=== PATIENT | male | born 1965 | race Caucasian/White ===

== ENCOUNTER 2020-06-26 07:58 | Outpatient (CLI) | payer OTHER, SELFPAY ==
--- OUTSIDE RECORDS SUMMARY | 2020-06-25 11:08 | XMS_ITS ---
:1965 Author Care Team Providers Name Role Phone ANNALISA THOMPSON MD General Surgeon [phone] IQRA MOSQUEDA MD Primary Care Provider [phone] LIANA PATINO [employer] Counter Sales Person [phone] Allergies Code Code System Name Reaction Severity Status Onset NKDA ? Medications Name Status Start Date Stop Date ? ? alfuzosin ER 10 mg Completed ? 02/09/2019 tablet,extended release 24 hr amoxicillin 500 mg capsule Completed ? 01/06 amoxicillin 500 mg tablet Completed ? 2017 Take 2 tablets every 12 hours by oral route for 14 days. Budeprion SR 150 mg tablet, sustained release Completed 10/18/2013 1 Tablet ER 12HR: bid - twice daily ciprofloxacin 500 mg tablet Completed ? 03/2018 clarithromycin 500 mg tablet Active ? Not available clobetasol 0.05 % topical ointment Active ? Not available APPLY TOPICALLY TWO TIMES A DAY TO HAND DERMATITIS doxazosin 2 mg tablet Completed 02/10/2012 02/10/2012 1 tablet(s): daily for benign prostatic hypertrophy doxepin 10 mg capsule Completed 07/23/2008 07/23/2008 1 at bedtime Capsule: increase as directed to 3 at bedtime Enema Disposable 19 gram-7 gram/118 mL Completed ? 06/22/2018 Insert 118 mL by rectal route as directed for 1 day. Use entire bottle rectally two hours prior to biopsy erythromycin 5 mg/gram (0.5 %) eye ointment Completed 08/1208/23/2011 1 Ointment: Every 8 hours Hibiclens 4 % topical liquid Completed 01/30/2013 1 Liquid: wash affected area 2-3 times a day hydrocodone 5 mg-acetaminophen 325 mg tablet Completed 07/04/2015 1-2 Tablet: Every 6 hours as needed hydrocodone 5 mg-acetaminophen 500 mg tablet Completed 08/201304/19/2013 1-2 Tablet: Every 6 hours as needed ibuprofen 600 mg tablet Completed 01/30/2013 02/10/20 13 1 Tablet: three times daily prn ibuprofen 800 mg tablet Completed 07/22/2010 07/23/19 11 1 Tablet: three times daily Keflex 500 mg capsule Completed 01/30/2013 02/09/2013 2 (two) Capsule: twice a day Lexapro 20 mg tablet Completed 08/16/2012 03/12/2014 1 Tablet: daily meloxicam 7.5 mg tablet Active ? Not avai lable Take 1 tablet twice a day by oral route. naproxen 500 mg tablet Completed ? 1 TAKE ONE TABLET BY MOUTH TWICE A DAY [place] 7.5 mg-325 mg tablet Completed 02/10/201202/09 1-2 Tablet: Every 6 hours as needed omeprazole 20 mg capsule,delayed Active ? Not available release omeprazole 40 mg capsule,delayed release Completed 006 12/16/2005 1 (one) Capsule DR: Daily pantoprazole 40 mg Active ? Not available tablet,delayed release Percocet 5 mg-325 mg tablet Completed 04/19/201308/2013 1-2 Tablet: Every 6 hours as needed phenazopyridine 200 mg tablet Completed ? prednisone 10 mg tablet Completed ? 06/07/19 21 sildenafil 100 mg tablet Active ? Not tati ilable TAKE ONE TABLET BY MOUTH EVERY DAY DIRECTED Sinemet 10 mg-100 mg tablet Completed 10/27/200610/13 1 (one) Tablet: bedtime sucralfate 1 gram tablet Completed ? 019 tamsulosin 0.4 mg capsule Completed ? 2018 Topamax 25 mg tablet Completed 08/15/2014 08/20/2014 1 (one) Tablet: q - at bedtime triamcinolone acetonide 0.1 % topical ointment Completed ? 06/06/2020 APPLY A THIN LAYER TO AFFECTED AREA S TWO TIMES A DAY triamcinolone acetonide 0.5 % Active ? No t available topical ointment Zantac Maximum Strength 150 mg tablet Completed 06/17/2014 06/17/2014 1 (one) Tablet: bid - twice daily Zithromax Z-Freddy 250 mg tablet Completed 07/04/2012 1 Tablet: 2 tabs day 1, 1 tab days 2-5 zolpidem 5 mg tablet Completed 08/03/2011 08/03/2011 1 (one) Tablet: At bedtime as needed Problems Name Status Onset Date Source ? Overweight Active ? History Non-organic Sleep Disorder Active ? Histo ry Adjustment Disorder with Depressed Mood Active ? History Insomnia Active ? History Extrapyramidal Disease Active ? History Restless Legs Active ? History Acute Pharyngitis Active ? History Disorder of Upper Respiratory System Active ? History Ventral Incisional Hernia of Anterior Abdominal Active ? History Wall without Obstruction and without Gangrene Diaphragmatic Hernia Active ? History Kidney Stone Active ? History Large Prostate Active ? History Cellulitis and Abscess of Upper Arm Active ? History Itching Active ? History Shoulder Joint Pain Active ? History Hip Pain Active ? History Neck Pain Active ? History Low Back Pain Active ? History Fibromyositis Active ? History Pain in Right Arm Active ? History Consciousness And/or Awareness Finding Active ? History Dizziness and Giddiness Active ? History Fever Active ? History Lack of Energy Active ? History Symptom of Skin and Integumentary Tissue Active ? History Headache Active ? History Polyuria Active ? History Tear of Medial Meniscus of Knee Active ? History Foreign Body on External Eye Active ? His tory Injury of Shoulder Region Active ? Histor y Adult Health Examination Active ? History Screening for Cardiovascular System Disease Active ? History Anemia Active ? History Procedure by Method Active ? History Finding of Esophagus Active ? History Pain in Eye Active ? History Pain in Left Knee Active ? History Procedures Date Name Performed by ? 12/26/2017 Colonoscopy Information not avai lable Notes: Diverticulosis 12/26/2017 Egd Information not avai lable Notes: GERD, Hiatal Hernia, Gastritis ; 07-18-2009; 10/28/2003 ? Hernia Repair Information not avai lable ? Adenoidectomy Information not avai lable ? Orthopedic Surgery Information not avai lable Notes: Rt Knee Arthroscopy w/ PMM & P atellofemoral Plica Ex 10/21/11 ? Tonsillectomy Information not avai lable 02/24/2018 XR, Wrist, 3 or More View [facility] Radiology (Internal) [address], [place] [id number] (Work Place) 05/10/2018 XR, Abdomen, 1 View [facility] Radiology (Internal) [address] [place] [address] (Work Place) 05/10/2018 US, Retroperitoneum [facility] ([facility]) [address] [place] [address] (Work Place) 05/10/2018 Unlisted Imaging Order [facility] (Internal) [address] [place] [address] (Work Place) 10/10/2018 XR, Knee, 4 or More View [facility] (Internal) [address] [place] [address] (Work Place) Results Lab Results Date Name Specimen Result Interpretation Description Value Range Status Address ? 06/24/2020 RBC Morphology, BLD ? Macro small ? Eileen l [facility] (Internal) : [address] ? ? BLD ? Poik occasional ? Final [place] [hpf] [facility] (Internal) : [address] 02/06/2019 Urinalysis, UR - UA-col pale yellow pale Fi nal [place] Dipstick, Reflex or yellow [facility] (Internal) : [address] t ? ? UR - UA-kristy clear clear Final [place] ear [facility] (Internal) : [address] t ? ? UR - UA-glu negative negative Final [facility] (Internal) : [address] t ? ? UR - UA-andrew negative negative Final [place] i [facility] (Internal) : [address] t ? ? UR - UA-ket negative negative Final [place] one [facility] (Internal) : [address] t ? ? UR - UA-spe 1.010 1.003-1.0 Final [place] c Grav 35 [facility] (Internal) : [address] t ? ? UR - UA-blo negative negative Final [place] od [facility] (Internal) : [address] ? ? UR - UA-pH 7.0 [pH] 4.6-8.0 Final [place] [pH] [facility] (Internal) : [address] ? ? UR - UA-pro negative negative Final [facility] (Internal) : [address] ? ? UR - UA-uro normal normal Final [facility] L ab (Internal) : [address] t ? ? UR - UA-nit negative negative Final [facility] L [facility] (Internal) : [address] ? ? UR - UA-celia negative negative Final [facility] L ab (Internal) : [address] 07/06/2018 Culture ([place] UR - Final microbiology ? Final [facility]), Urine results [facility] (Internal) : [address] 06/21/2018 Pathology Study TISS - Report results below ? Final [facility] (Internal) : [address] 01/11/2018 Urinalysis, UR - UA-col pale yellow pale Fi nal [place] Dipstick, Reflex or yellow [facility] (Internal) : [address] ? ? UR - UA-kristy clear clear Final [facility] L [facility] (Internal) : [address] ? ? UR - UA-spe 1.010 1.003-1.[address] L ab (Internal) : [address] ? ? UR - UA-pH 7.5 [pH] 4.6-8.0 Final [place] [pH] [facility] (Internal) : [address] ? ? UR - UA-celia negative negative Final [facility] L ab (Internal) : [address] ? ? UR - UA-nit negative negative Final [facility] L ab (Internal) : [address] t ? ? UR - UA-pro negative negative Final [facility] L ab (Internal) : [address] t ? ? UR - UA-glu negative negative Final [facility] L ab (Internal) : [address] ? ? UR - UA-ket negative negative Final [facility] L ab (Internal) : [address] t ? ? UR - UA-uro normal normal Final [facility] L ab (Internal) : [address] ? ? UR - UA-andrew negative negative Final [place] i [facility] L ab (Internal) : [address] ? ? UR - UA-blo negative negative Final [place] od [facility] L ab (Internal) : [address] 12/26/2017 Urease, TISS - Final microbiology ? Final [place] Qualitative, results Cou [facility] L ab (Internal) : [address] 12/26/2017 Pathology Study TISS - Report results below ? Final [facility] (Internal) : [address] 12/16/2017 Methicillin NASAL - Final microbiology ? [facility] Resistant results Countr y Staphylococcus Ho spital Lab Aureus, Culture, (Internal): Nasal [address] 11/28/2017 Lipid Panel, S - Chol 149 mg/dL 50-200 [place]en [facility] Serum mg/dL [facility] L ab (Internal) : [address] ? ? S - Trig 96 mg/dL 10-150 Final [place] mg/dL [facility] L ab (Internal) : [address] ? ? S - Hdl 46 mg/dL 40-60 Final [place] mg/dL [facility] L ab (Internal) : [address] ? ? S - Ldl 84 mg/dL 0-130 Final [place] mg/dL [facility] L ab (Internal) : [address] 11/28/2017 PSA, Serum or S - PSA 0.4 NG/mL 0.0-4.0 Fi [facility] Plasma Scrn NG/mL [facility] L ab (Internal) : [address] Past Encounters 06/06/2020 Pain of Right Shoulder Joint; Stiffness of Joint of Right Hand; Sleep Disorder; Fatigue; Screening for Malignant Neoplasm of Prostate; Primary Erectile Dysfunction; Hyperlipidemia Screening Iqra Mosqueda MD: [address] [place] [phone], Ph. 10/04/2019 Contact Dermatitis Iqra Mosqueda MD: [address] [place] [phone], Ph. 07/26/2019 Contact Dermatitis Iqra Mosqueda MD: [address] [place] [address], Ph. 03/21/2019 Sherie Linn PA-C: [address] [phone], Ph. 02/28/2019 Sherie Linn PA-C: [address] [phone], Ph. 02/21/2019 Sherie Linn PA-C: [address] [phone], Ph. 02/14/2019 Sherie Linn PA-C: [address] [phone], Ph. 02/09/2019 Adult Health Examination; Large Prostate Iqra Mosqueda MD: [address] [place] [address], Ph. Social History Tobacco Smoking Status Never Smoker Vaccine List Vaccine Type Tdap 10/15/2010?0.5 mL Plan of Care Reminders Provider Appointments None ? ? recorded. Lab None ? ? recorded. Referral None ? ? recorded. Procedures None ? ? recorded. Surgeries None ? ? recorded. Imaging None ? ? recorded. Vitals 06/06/2020 02:00PM Acute 20 Height Weight BMI Blood Pressure 167.64 cm 75.3 kg 26.8 kg/m2 130/80 mm[Hg] 10/04/2019 03:00PM Follow Up 20 Height Weight BMI Blood Pressure 167.64 cm 73.17 kg 26 kg/m2 130/70 mm[Hg] 07/26/2019 02:00PM Acute 20 Height Weight BMI Blood Pressure 167.64 cm 75.21 kg 26.8 kg/m2 138/88 mm[Hg] 03/21/2019 02:00PM Follow Up 15 Height Weight 167.64 cm 02/28/2019 01:45PM Injection 15 Height Weight 167.64 cm 02/21/2019 10:45AM Injection 15 Height Weight 167.64 cm 02/14/2019 03:45PM Injection 15 Height Weight 167.64 cm 02/09/2019 02:20PM Preop Clearance 40 Height Weight BMI Blood Pressure 167.64 cm 74.9 kg 26.7 kg/m2 146/80 mm[Hg] 11/16/2018 03:00PM Follow Up 15 Height Weight BMI Blood Pressure 167.64 cm 74.39 kg 26.5 kg/m2 138/68 mm[Hg] 06/08/2018 10:30AM Office 15 Height 167.64 cm 05/10/2018 10:30AM Office 15 Height 167.64 cm 02/24/2018 09:15AM Office 30 Height Weight BMI Blood Pressure 167.64 cm 77.25 kg 27.5 kg/m2 156/98 mm[Hg] 01/11/2018 12:40PM Follow Up 20 Height Weight BMI Blood Pressure 167.64 cm 76.71 kg 27.3 kg/m2 150/90 mm[Hg] 12/13/2017 09:15AM Office 15 Height 167.64 cm 11/28/2017 03:00PM Follow Up 20 Height Weight BMI Blood Pressure 167.64 cm 75.32 kg 26.8 kg/m2 132/80 mm[Hg] 01/11/2017 Weight Blood Pressure 76.48 kg 134/82 mm[Hg] 07/30/2016 Weight Blood Pressure 72.94 kg 112/74 mm[Hg] 07/04/2015 Blood Pressure 132/80 mm[Hg] 08/07/2014 Weight Blood Pressure 75.93 kg 120/78 mm[Hg] 07/30/2014 Weight Blood Pressure 73.62 kg 118/84 mm[Hg] 04/05/2014 Weight Blood Pressure 76.34 kg 120/70 mm[Hg] 03/12/2014 Weight Blood Pressure 77.38 kg 118/82 mm[Hg] 12/13/2013 Height Weight Blood Pressure 167.64 cm 72.57 kg 102/72 mm[Hg] 11/30/2013 Height Weight Blood Pressure 170.18 cm 76.84 kg 122/86 mm[Hg] 11/14/2013 Height Weight Blood Pressure 170.18 cm 76.84 kg 142/88 mm[Hg] 10/18/2013 Weight Blood Pressure 76.84 kg 118/64 mm[Hg] 04/19/2013 Weight Blood Pressure 77.56 kg 142/82 mm[Hg] 01/30/2013 Height Weight Blood Pressure 170.18 cm 76.09 kg 128/82 mm[Hg] 08/16/2012 Weight Blood Pressure 76.77 kg 118/70 mm[Hg] 07/26/2012 Blood Pressure 132/90 mm[Hg] 07/11/2012 Blood Pressure 136/88 mm[Hg] 07/04/2012 Weight Blood Pressure 74.12 kg 128/68 mm[Hg] 04/17/2012 Weight Blood Pressure 75.95 kg 120/70 mm[Hg] 02/10/2012 Weight Blood Pressure 74.39 kg 120/78 mm[Hg] 01/25/2012 Height Weight Blood Pressure 170.18 cm 72.57 kg 138/80 mm[Hg] 12/14/2011 Height Weight Blood Pressure 170.18 cm 72.57 kg 130/90 mm[Hg] 11/02/2011 Height Weight Blood Pressure 170.18 cm 72.57 kg 146/82 mm[Hg] 10/06/2011 Height Weight Blood Pressure 170.18 cm 72.57 kg 130/78 mm[Hg] 08/23/2011 Height Weight Blood Pressure 170.18 cm 73.68 kg 120/78 mm[Hg] 08/03/2011 Height Weight Blood Pressure 170.18 cm 73.03 kg 130/66 mm[Hg] 05/24/2011 Weight Blood Pressure 75.3 kg 120/78 mm[Hg] 02/17/2011 Weight Blood Pressure 73.71 kg 122/70 mm[Hg] 11/18/2010 Weight Blood Pressure 72.57 kg 128/80 mm[Hg] 10/15/2010 Weight Blood Pressure 71.21 kg 110/70 mm[Hg] 09/16/2010 Weight Blood Pressure 69.85 kg 122/80 mm[Hg] 08/19/2010 Height Weight Blood Pressure 170.18 cm 71.33 kg 138/70 mm[Hg] 07/22/2010 Height Weight Blood Pressure 399.8 cm 30.5 kg 138/72 mm[Hg] 10/07/2009 Weight Blood Pressure 69.85 kg 128/82 mm[Hg] 05/22/2009 Weight Blood Pressure 71.67 kg 122/84 mm[Hg] 01/20/2009 Weight Blood Pressure 71.67 kg 134/80 mm[Hg] 12/12/2008 Height Weight Blood Pressure 165.1 cm 70.31 kg 120/80 mm[Hg] 10/24/2008 Weight Blood Pressure 71.67 kg 130/80 mm[Hg] 07/03/2008 Blood Pressure 128/84 mm[Hg] 06/24/2008 Weight Blood Pressure 74.84 kg 142/80 mm[Hg] 06/10/2008 Weight Blood Pressure 76.2 kg 140/88 mm[Hg] 05/10/2008 Weight Blood Pressure 74.39 kg 130/84 mm[Hg] 05/03/2008 Weight Blood Pressure 73.94 kg 124/82 mm[Hg] 02/05/2008 Weight Blood Pressure 73.03 kg 140/90 mm[Hg] 01/24/2008 Weight Blood Pressure 71.21 kg (1) 126/90 mm[Hg] (2) 130/68 mm[Hg] 12/18/2007 Weight Blood Pressure 71.67 kg 140/94 mm[Hg] 08/01/2007 Weight Blood Pressure 74.84 kg 122/76 mm[Hg] 07/14/2007 Weight Blood Pressure 76.2 kg 112/80 mm[Hg] 06/27/2007 Weight Blood Pressure 73.94 kg 130/88 mm[Hg] 06/20/2007 Weight Blood Pressure 72.43 kg 134/90 mm[Hg] 12/23/2006 Weight Blood Pressure 72.57 kg 130/80 mm[Hg] 10/31/2006 Weight Blood Pressure 73.71 kg 120/80 mm[Hg] 06/03/2006 Weight Blood Pressure 72.18 kg 142/92 mm[Hg] 12/16/2005 Weight Blood Pressure 73.48 kg 116/84 mm[Hg] 11/03/2005 Weight Blood Pressure 73.48 kg 112/60 mm[Hg] 05/03/2005 Weight Blood Pressure 74.39 kg 118/84 mm[Hg] 04/02/2005 Weight Blood Pressure 73.48 kg (1) 138/96 mm[Hg] (2) 144/88 mm[Hg] (3) 138/94 mm[Hg] 08/14/2004 Weight Blood Pressure 71.21 kg 132/86 mm[Hg]
--- OUTSIDE RECORDS SUMMARY | 2020-06-25 11:09 | XMS_ITS | Encounter Summary ---
:1965 Author Care Team Providers Name Role Phone Todd Mosqueda MD Primary Care Provider [phone] Rajeev Siddiqui Industrial Tech Instructor [phone] Joe Omer MD General Surgeon [phone] Reason for Visit fatigue Assessment and Plan 1. Pain of right shoulder joint see prior mri, reviewed - carmen r internal derangement, not surgical. no new injury. PT, consider MRI if necessary af ter 6 weeks. ? physical therapy referral - MRI shoulder done 02/23/2013 in EMR 2. Stiffness of joint of right h and both hands. using ibuprofen. c heck labs, most likely pattern oa ? Naprosyn 500 mg tablet ? cyclic citrullinated pepti de Ab, quant immunoassay, serum ? ESR (erythrocyte sedimenta tion rate), blood 3. Sleep disorder refer to sleep, possible sleep apnea ? sleep medicine referral - Not seen in Sleep previously 4. Fatigue ? CBC w/ auto diff ? TSH, serum or plasma ? CMP, serum or plasma ? vitamin B12, serum 5. Screening for malignant neopl asm of prostate ? PSA, serum or plasma 6. Primary erectile dysfunction discussed viagra, effects/side effects. use prn. check testosterone, do in am ? testosterone, free + total , serum ? sildenafil 100 mg tablet 7. Hyperlipidemia screening ? lipid panel, serum Discussion Note: None recorded.Patient educational handouts: No information available. Plan of Care Reminders Provider Appointments Follow up 20 08/08/2020 Tamara Mosqueda MD 3:00PM ? New Patient 01/09/2021 Henry Pitt NP 45 9:00AM ? Or 15 on or rupesh Zuniga MD 12/27/2027 Lab CBC W/ Auto 06/06/2020 [facility] (In [facility]) ? TSH, Serum or 06/06/2020 [facility] ([facility]) ? CMP, Serum or 06/06/2020 [facility] (In ternal) ? Vitamin B12, 06/06/2020 [facility] Serum [facility] Lab (In ternal) ? PSA, Serum or 06/06/2020 [facility] ? Cyclic 06/06/2020 [facility] try Citrullinated Peptide Hospital L ab (Internal) Ab, Quant Immunoassay, Serum ? ESR 06/06/2020 [facility] [facility] ([facility]) Sedimentation Rate), Blood ? Testosterone, 06/06/2020 [facility] Free + Total, Serum Hospital Lab (Internal) ? Lipid Panel, 06/06/2020 [facility] Serum Hospital Lab (In ternal) Referral Physical 06/06/2020 [facility] Therapy Referral [facility] Rehab[facility] litation Services ? Sleep 06/06/2020 [facility] Procedures None ? ? recorded. Surgeries None ? ? recorded. Imaging None ? ? recorded. Medications Name Start Date ? ? clobetasol 0.05 % topical ointment ? APPLY TOPICALLY TWO TIMES A DAY TO HAND DERMATITIS meloxicam 7.5 mg tablet ? Take 1 tablet twice a day by oral route. pantoprazole 40 mg tablet,delayed release ? TAKE ONE TABLET BY MOUTH EVERY DAY sildenafil 100 mg tablet ? TAKE ONE TABLET BY MOUTH EVERY DAY DIRECTED triamcinolone acetonide 0.5 % topical ointment ? APPLY A THIN LAYER TO THE AFFECTED AREA(S) BY TOPICAL ROUTE 2 TIMES PER DAY Medications Administered None recorded. Vitals Height Weight BMI Blood Pressure 5 ft 6 in 165 lbs 16 oz 26.8 kg/m2 130/80 mm[Hg] Results Lab Results None recorded. Allergies Code Code System Name Reaction Severity Onset NKDA ? ? ? Problems Name Status Onset Date Source ? [...] 10/21/11 ? Tonsillectomy Information not avai lable Vaccine List Vaccine Type Tdap 10/15/2010?0.5 mL Social History Tobacco Smoking Status Never Smoker Are you currently employed? Y Blind or serious difficulty N seeing Chewing tobacco none Have you had close contact with N someone who travelled internationally and was ill? Most Recent Tobacco Use Screening 10/04/2019 Advance directive Y E-cigarette/Vape Status Never used electronic cigarettes Exercise level Occasional Hand Dominance Left Alcohol intake Occasional Live alone or with others? with others Animal exposure? Y Smokeless Tobacco Status Never used smokeless tobacco Language Difficulties No Hard of hearing or deaf in one or N both ears? Passive smoke exposure? N Caffeine intake Moderate Notes: 3-4 cups o f coffee daily. Drug Use N Guns present in home N Have you traveled N internationally? Functional Status No Impairment. Past Encounters 06/06/2020 Pain of Right Shoulder Joint; Stiffness of Joint of Right Hand; Sleep Disorder; Fatigue; Screening for Malignant Neoplasm of Prostate; Primary Erectile Dysfunction; Hyperlipidemia Screening Todd Mosqueda MD: [address] [place] [phone], Ph. History of Present Illness ? Fatigue Reported By: Patient HPI: Status: chronic, worse. Qual ity: ; Hands hurt worse in the morning and are stiff. They loosen up as the day goes on. Severity: normal activity, change in sleep patterns. Du ration: constant. Modifying Factors: no new stressors in life, not takin g vitamins. Associated Symptoms: no alcohol consumption, no chest pain, no SOB, no tender, swollen glands, no fever, depression, anxiety, unrefre shing sleep, snoring, joint pain, dizziness, concentration impairment, j oint pain without inflammation, headache with onset after the fatigue , exertional fatigue Note: <p>He has had fatigue and joint pain throughout this winter and it is getting worse. right shoulder bothering again, no new injury, see prior mri and ortho eval, reviewed.</p><p>
</p><p>ed, has some erectile function but not much, does not last. </p>&lt ;p>
</p><p>sleeps 8-9 hours but does not wake refreshed, states he snores.</p>Review of Systems: ROS as noted in the HPI Review of Systems None recorded. Physical Exam ? Notes: <p>male nad</p><p>tm intact< /p><p>neck supple thyroid wnl</p><p>chest cta</p><p>cvs rrr no m</p><p >ext no c/c/e</p><p>right shoulder tender anterior aspect, minor limitation in external rotation.</p>
--- NOTE | 2020-06-26 13:12 | DI.RAD_ITS ---
EXAM: XR SHOULDER RT COMPLETE 2+V CLINICAL HISTORY: gradually worsening right shoulder pain with ROM,M25.511. TECHNIQUE: 2D digital imaging was performed. COMPARISON: No exams were available for comparison FINDINGS: There is no evidence of fracture or dislocation. No abnormal soft tissue calcifications. [place] joint appears unremarkable. Mild degenerative changes noted in the AC joint. Bone density is nor mal. No osseous lesions. Coracoid process is intact. IMPRESSION: DATA REPOSITORY: RADIATION DOSE DELIVERED:
== END 2020-06-26 08:18 ==
PROVIDERS: PCP Family Medicine; Visit Provider Nurse Practitioner Family
DX: M25.511 Pain in right shoulder (principal); M19.011 Primary osteoarthritis, right shoulder
CPT/HCPCS: 73030

== ENCOUNTER 2020-09-04 10:47 | Outpatient (CLI) | payer OTHER, SELFPAY ==
--- NOTE | 2020-09-04 09:30 | DI.RAD_ITS ---
Exam(s) XR ORBITS EXAM: XR ORBITS CLINICAL HISTORY: PRE MRI CLEARANCE,TENDINITIS, BURSITIS RT SHOULDER, M75.71. TECHNIQUE: 2D digital imaging was performed. COMPARISON: No exams were available for comparison FINDINGS: No fracture seen. No radiopaque foreign body with the exception of the mass which apparently the pat ient did not take off for these radiographs. IMPRESSION: DATA REPOSITORY: RADIATION DOSE DELIVERED:
--- NOTE | 2020-09-04 09:30 | DI.MRI_ITS ---
Exam(s) MR UPPER JOINT RT WO EXAM: MR UPPER JOINT RT WO CLINICAL HISTORY: RT SHOULDER PAIN,BICEPS TENDINITIS,BURSITIS,M75.21,M75.51,M75.81 TECHNIQUE: Multiplanar multisequence MRI of the shoulder was performed. COMPARISON: CR XR SHOULDER RT COMPLETE 2+V from 06/26/2020 CR XR ORBITS from 09/04/2020 FINDINGS: MARROW:There is no evidence of fracture, Hill-Sachs deformity, nor ominous osseous lesions. Is an are a of conglomeration of degenerative subarticular cysts in the posterior lateral humeral head. ROTATOR CUFF MECHANISM: AC JOINT/ACROMIUM: Mild degenerative changes in the AC joint. No downgoing osteophytes.. There is no evidence of os acromiale. Supraspinatus: There is thickening and signal abnormality in the distal supraspinatus consistent with tendinosis. There is also a tiny focus of fluid signal at its insertion site on the greater tuberos ity consistent with partial tearing at this level. There does not appear to be a full-thickness tear . There is some fluid evident within the subacromial space, posteriorly. Infraspinatus: Intact. No evidence of tear nor muscle atrophy. There are small subarticular cysts i n the humeral head subjacent to the infraspinatus attachment site on the posterior greater tuberosity . Teres Minor: Intact. No evidence of tear nor muscle atrophy. Subscapularis/anterior cuff: Mild increased signal in the superior aspect of the multipennate inserti onal fibers anterior to the lesser tuberosity. No full-thickness tear. No muscle atrophy. No abnor mal intraosseous signal within the adjacent coracoid process. BICEPS TENDON: Exhibits normal position within the intertubercular groove. Mild tenosynovitis fluid within the sheath. Mild increased intrasubstance signal within the intra-articular aspect just later al to the anchor but no high-grade tear at this level.. No tenosynovitis. LABRUM: There is increased signal interposed between the superior labrum and osseous glenoid. This e xtends slightly posterior to the biceps attachment site. Possible subtle SLAP type injury. Some inc reased intrasubstance signal is also seen in the most posterior aspect of the superior labrum but wit hout detachment at this level. The posterior labrum below this level appears intact. Inferior labru m appears intact. LABROLIGAMENTOUS/CAPSULAR COMPLEX: There is no evidence of avulsion of the anterior-inferior labrum, capsule, inferior glenohumeral liga ment complex nor disruption of the scapular periosteum to suggest the presence of a Bankart lesion. GLENOHUMERAL JOINT: No joint effusion nor obvious loose intra-articular bodies. No chondral defects. No osteophytes. No degenerative subarticular cysts in the osseous glenoid. No evidence of capsular tear. The inferior glenohumeral ligament is intact. QUADRILATERAL SPACE: No evidence of mass in the region of the axillary nerve and dorsal circumflex hu meral vessels. Visualized triceps muscle at this level appears unremarkable. IMPRESSION: 1. Abnormal signal within the supraspinatus-rotator cuff tendon consistent with tendinosis and there is a small focus of fluid signal within the foot pad insertion anterior aspect which has appearance o f a focal partial-thickness tear at this level. There is a possibly that this may represent a small full-thickness tear given that there does appear to be some fluid in the subacromial bursa. Other co nsideration would be for partial-thickness tearing with an element of bursitis. There is some degene rative change in the AC joint. 2. Infraspinatus and teres minor are intact. Mild tendinitis signal in the subscapularis tendon. 3. There is mild increased signal interposed between the osseous glenoid and superior labrum at and s lightly posterior to the biceps insertion site. Either related to bicipital groove but cannot exclud e subtle SLAP-type injury. There is no evidence of paralabral cyst 4. Mild tenosynovitis of biceps tendon sheath. The biceps tendon is not displaced from the intertub ercular groove. Minimal degenerative changes in the glenohumeral joint. No joint effusion. No osteophytes. No loos e intra-articular body. DATA REPOSITORY:
== END 2020-09-04 11:07 ==
PROVIDERS: PCP Family Medicine; Visit Provider Student in an Organized Health Care Education/Training Program
DX: Z01.818 Encounter for other preprocedural examination (principal); M19.011 Primary osteoarthritis, right shoulder; M75.81 Other shoulder lesions, right shoulder; M75.51 Bursitis of right shoulder; M75.21 Bicipital tendinitis, right shoulder
CPT/HCPCS: 70200; 73221

== ENCOUNTER 2024-11-28 07:02 | Outpatient (CLI) | payer OTHER, SELFPAY ==
--- NOTE | 2024-11-28 06:00 | DI.RAD_ITS ---
Exam(s) XR PAIN CLINIC LUMBAR SP 2V EXAM: XR PAIN CLINIC LUMBAR SP 2V CLINICAL HISTORY: Dx: Spondylolisthesis of lumbar region TECHNIQUE: 2D and realtime digital imaging was performed. CONTRAST MATERIAL: Refer to procedure report. COMPARISON: No exams were available for comparison FINDINGS: Fluoroscopy was provided for Dr. Denise during the performance of a facet joint injection. Please refer to the procedure report for complete details. Ka,r=7.25 mGy IMPRESSION: RADIATION DOSE DELIVERED: 0.0 0.0 0
[2024-11-28 07:09] VITALS: BP 141/91; PULSE 71; RESP 18; TEMP 36.3; O2SAT 98
--- NOTE | 2024-11-28 07:29 | PDOC.PAIN ---
Date of service: 11/28/24 Time of Service: 07:55 Pain Managment Procedure Note Procedure Note Procedure Note: Diagnostic Lumbar Facet Joint Injection ? Location: Right Lumbar Facet Joints ? Levels: L4-5, L5-S1 ? Pre-procedure Diagnosis: M47.817 Spondylosis without myelopathy or radiculopathy, lumbosacral region M47.816 Spondylosis without myelopathy or radiculopathy, lumbar region ? Post-procedure Diagnosis:? The same as above ? Sedation:? None ? Estimated blood loss:? less than 2 cc ? Surgeon: Conner Denise MD COMMENT: Pain 4/10 .Decision was made to proceed with intra-articular facet injections for the possibility of not having to do medial branch blocks and radiofrequency ablation if patient get long lasting relief (> 3 months). ? Procedure Detail:? The procedure and potential risks were explained to the patient and informed written consent was obtained. The patient was escorted to the procedure room and placed in the prone position. Pillows were utilized for proper positioning and comfort.? Time out was performed in the procedure room with nursing staff confirming the patient's identity, procedure to be performed, allergies, and any blood thinning or anti-platelet medications.? Sterile technique was maintained throughout the procedure.? The patient's lumbosacral area was prepped with chlorhexidine and draped in a sterile fashion. Lidocaine 1% was used to anesthetize the skin. An oblique fluoroscopic view was obtained, with visualization of the facet joint.? A 22gauge, Quincke needle was gently advanced through the facet capsule.? Needle placement was confirmed with fluoroscopy in AP, oblique, and lateral views by injecting 0.25cc of contrast.? 20 mg of Depomedrol and 0.5ml of 0.5% bupivacaine was injected into the capsule at Right L4-5. This was repeat at L5-S1 Right ? The patient tolerated the procedure well and was discharged home with instructions. Permanent images saved and recorded. Plan:? Follow up prn COMMENT:Pain went from 4/10 to 0/10. Pain? 100 % better. Will use this as both diagnostic and potentially therapeutic.? With short-term relief from the level that it was not long-lasting then we will proceed with for LMBB #2 and possible radiofrequency ablation Coding Conscious Sedation used for procedure: No CPT Codes: LMBB (includes Fluoro) Lumbar/Sacral, 2nd lvl - 12718 ([id number] ~G) LMBB (includes Fluoro) Lumbar/Sacral, single lvl - 77542 ([id number] ~G) Additional Codes: Date of Service (83869) Date of service: 11/28/24 Diagnoses: M47.817 Spondylosis without myelopathy or radiculopathy, lumbosacral region M47.816 Spondylosis without myelopathy or radiculopathy, lumbar region
[2024-11-28 07:34] VITALS: PULSE 61; O2SAT 96
[2024-11-28 07:40] VITALS: PULSE 69; O2SAT 96
[2024-11-28] MEDS: Nerve Block Tray 1 EACH MC (08:02)
[2024-11-28] MEDS: Omnipaque 240 MG/ML 50 ML BTL IJ (08:04)
[2024-11-28] MEDS: Bupivacaine 0.5% Pres-Free 10 ML VIAL IJ (08:05)
[2024-11-28] MEDS: methylPREDNISolone ACETATE 80 MG/ML VIAL IJ (08:06)
== END 2024-11-28 07:03 | disposition home or self-care (01) ==
LOC: PC 07:03
PROVIDERS: PCP Family Medicine; Visit Provider Anesthesiology Pain Medicine
DX: M47.816 Spondylosis without myelopathy or radiculopathy, lumbar region (principal); M47.817 Spondylosis without myelopathy or radiculopathy, lumbosacral region
CPT/HCPCS: 64493; 64494; 72100; J0665; J1010; Q9967